=== PATIENT | male | born 1965 ===

== ENCOUNTER 2017-10-04 10:15 | Emergency (ER) | payer BC, MEDICARE ==
[2017-10-04 10:17] VITALS: BMI 30.8
[2017-10-04 10:18] VITALS: BP 146/79; PULSE 88; RESP 16; TEMP 97.7; O2SAT 98
--- NOTE | 2017-10-04 10:54 | ED PDOC ---
HPI: Skin/Bite Injury Time Seen by Provider: 10/04/17 10:53 Chief Complaint (Nursing): Allergic Reaction Chief Complaint (Provider): rash, hives History Per: Patient Additional Complaint(s): Patient states he woke up today with hives to upper and lower extremities. Patient has pruritus without pain, no fever or chills. He does not recall any new foods that could have caused reaction, no new soaps, lotions, detergents, medications, vitamins or supplements. No associated throat discomfort or shortness of breath. PMD: Dr. Gonzalez Past Medical History Reviewed: Historical Data, Nursing Documentation, Vital Signs Vital Signs: Last Vital Signs Temp 97.7 F 10/04/17 10:17 Pulse 88 10/04/17 10:17 Resp 16 10/04/17 10:17 BP 146/79 10/04/17 10:17 Pulse Ox 98 10/04/17 11:00 - Medical History PMH: HTN - Surgical History Other surgeries: Right leg fracture repair - Family History Family History: States: No Known Family Hx - Living Arrangements Living Arrangements: With Family - Social History Current smoker - smoking cessation education provided: No Alcohol: Occasional Drugs: Denies - Home Medications Home Medications: Ambulatory Orders Medication Instructions Recorded Lisinopril [Zestril] 20 mg PO DAILY 08/31/17 amLODIPine [Norvasc] 5 mg PO DAILY 08/31/17 Prednisone 50 mg PO DAILY #5 tablet 10/04/17 hydrOXYzine HCl [Atarax] 25 mg PO Q6H PRN #30 tab 10/04/17 - Allergies Allergies/Adverse Reactions: Allergies Allergy/AdvReac Type Severity Reaction Status Date / Time No Known Allergies Allergy Verified 08/31/17 11:29 Review of Systems ROS Statement: Except As Marked, All Systems Reviewed And Found Negative Constitutional: Negative for: Fever ENT: Negative for: Throat Pain, Throat Swelling Respiratory: Negative for: Shortness of Breath, SOB with Exertion, Wheezing Skin: Positive for: Rash Physical Exam - Reviewed Nursing Documentation Reviewed: Yes Vital Signs Reviewed: Yes - Physical Exam Appears: Positive for: Well, Non-toxic, No Acute Distress Skin: Positive for: Rash (Urticarial lesions noted to bilateral upper and lower extremities, no pustular or scaling lesions noted) Cardiovascular/Chest: Positive for: Regular Rate, Rhythm Respiratory: Positive for: Normal Breath Sounds Extremity: Negative for: Pedal Edema Neurologic/Psych: Positive for: Alert, Oriented - ECG O2 Sat by Pulse Oximetry: 98 Pulse Ox Interpretation: Normal Medical Decision Making Medical Decision Making: Impression: Urticaria Prescriptions given for prednisone and Atarax. Patient was advised to follow-up with primary care doctor in 2-3 days. Disposition - Clinical Impression Clinical Impression: Urticaria - Patient ED Disposition Is Patient to be Admitted: No Counseled Patient/Family Regarding: Diagnosis, Need For Followup, Rx Given - Disposition Referrals: Greg Gonzalez MD [Primary Care Provider] - Disposition: Routine/Home Disposition Time: 11:11 Condition: STABLE Additional Instructions: Take prescription meds as directed. Follow-up with primary doctor in 2-3 days. Prescriptions: hydrOXYzine HCl [Atarax] 25 mg PO Q6H PRN #30 tab PRN Reason: Itching / Pruritus Prednisone 50 mg PO DAILY #5 tablet Instructions: Hives (DC) Forms: [facility] (Portuguese), [facility] ED School/Work Excuse
== END 2017-10-04 11:19 | disposition home or self-care (01) ==
LOC: H.ER 10:15 → SUPCPDRO 10:15 → H.ER 11:19
DX: L50.0 Allergic urticaria (principal); I10 Essential (primary) hypertension